=== PATIENT | female | born 1955 | race Caucasian/White ===

== ENCOUNTER 2025-01-09 13:29 | Day surgery (SDC) | payer OTHER ==
[2025-01-04 11:23] LABS: Absolute Lymphocytes (CBC) 1.5 K/uL (0.7-4.9); Hematocrit 41.0 % (36.0-45.0); Hemoglobin 14.0 g/dL (12.0-15.0); MCH 31.6 pg (27.0-35.0); MCHC 34.1 g/dL (32.0-36.0); MCV 92.8 fL (80-100); MPV 8.8 fL (7.6-11.3); Nucleated RBC Absolute Count 0.0 (0-0); Nucleated Red Blood Cells % 0.0 % (0-0); RBC Red Blood Cell Count 4.42 M/uL (3.86-4.86); White Blood Count 6.00 thou/uL (4.3-10.9)
[2025-01-04 11:31] LABS: Sqamous Epithelial <5 /HPF (None Seen); Urine Micro Reflex YN NO BILL MICROSCOPIC
[2025-01-04 11:37] LABS: Anion Gap 9.0 mEq/L (5.0-15.0); BUN Blood Urea Nitrogen 15.0 mg/dL (7-18); Glucose Level 86.0 mg/dL (74-106); Potassium 4.0 mEq/L (3.5-5.1)
[2025-01-04 13:12] LABS: Blood Morphology Comment NOT SEEN (NOT SEEN); White Blood Cell Scan OK (OK)
[2025-01-09] MEDS: SCOPOLAMINE HYDROBROMIDE PATCH TD ONE (13:44)
[2025-01-09] MEDS: Ringers Lactate 1,000 ML IV ONE ×3 (13:55→18:45)
[2025-01-09] MEDS: CEFAZOLIN SODIUM 2 GM/VIAL ONE (14:28)
[2025-01-09] MEDS: BUPIVACAINE 0.25% PF 30 ML VIAL ONE (14:29)
[2025-01-09] MEDS ORDERED: Mastisol Adhesive Liq ONE (14:32)
[2025-01-09] MEDS ORDERED: ONDANSETRON 4 MG/2 ML VIAL ONE (14:59)
[2025-01-09] MEDS ORDERED: ROCURONIUM 50 MG/5 ML VIAL IV ONE (14:59)
[2025-01-09] MEDS ORDERED: KETOROLAC 30 MG/ML INJ ONE ×2 (14:59→17:09)
[2025-01-09] MEDS ORDERED: LIDOCAINE 2% MPF 5 ML VIAL ONE (14:59)
[2025-01-09] MEDS ORDERED: FENTANYL CITR 100 MCG/2 ML ONE ×2 (15:00→16:14)
[2025-01-09] MEDS ORDERED: MIDAZOLAM HCL 2 MG/2 ML INJ ONE (15:00)
[2025-01-09] MEDS ORDERED: SUGAMMADEX SODIUM 200 MG/2 ML VIAL IV ONE (16:00)
[2025-01-09 18:36] VITALS: O2SAT 96
[2025-01-09] MEDS: HYDROCODONE/APAP 5/325 MG TAB ONE (19:10)
[2025-01-09 19:45] VITALS: BP 142/83; TEMP 97.3
--- NOTE | 2025-01-10 02:09 | OP ---
Date of Procedure: 01/09/2025 Surgeon: Natalia Raza MD Painter Decorator: Raquel Olvera. Preoperative Diagnosis: Large right ovarian cyst. 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 Procedures Performed: 1. Laparoscopic pelvic washings. 2. Laparoscopic lysis of sigmoid adhesions and cul-de-sac adhesions to the sigmoid. 3. Total laparoscopic hysterectomy, bilateral salpingo-oophorectomy. Ebl: 25. Urine Output: 150. Specimens: Uterus, bilateral tubes, and ovaries. Pelvic washings. Complications: No complications. Drains: No drains. Condition: The patient's condition is stable. Findings: There was a large right ovarian cyst. The tube and the round ligament was significantly a dhered together on both sides. Very difficult to dissect the tube completely out without taking a po rtion of the round ligament, destabilizing the uterus. The uterus was retroflexed of the endometrial and cervical canals. There was a perforation while placing a uterine manipulator through the posterior portion of the cervical canal. After pelvic washings and bilateral ligation of the IP ligament on an attempt to dissect the tubes, there was difficulty discerning the planes between the proximal portion of the tube and the round ligament. This was significantly adhered. The removal of the uterus seemed like the most complete procedure in order for me to remove the tubes in a satisfac tory fashion and so I proceeded with hysterectomy along with this. Vaginal cuff was closed in 2 laye rs with a 0 V-Loc suture and that the specimens including the uterus, tubes, and ovaries were all eliz byron in an EndoCatch bag through the vagina and retrieved vaginally without any spillage. The fluid o f the cyst was drained slightly with the help of the laparoscopic cholecystectomy drainage needle wit hin the bag and safely the bag was closed and removed, and handed off for permanent pathology. Indications: The patient is a 69-year-old presented with finding of a large right ovarian cyst, whic h was evaluated with a CA-125. Other ovary was completely unremarkable. Discussed different options of doing a procedure including a hysterectomy along with bilateral salpingo-oophorectomy or just a p jamshid salpingo-oophorectomy. With the preservation of the uterus as there is nothing abnormal in path ology about the uterus, endometrial sampling showed very minimal tissue with no atypical cells or any abnormal endometrial histology. So, the patient was consented for a bilateral salpingo-oophorectomy , which she was also counseled that there may be a situation in which I could decide that hysterectom y can be performed and she consented for that. This was done in the preoperative area and re-edgardo llanos. and her brother were present. Questions were answered to their satisfaction. Description Of Procedure: She was taken back to the OR. A 2 g of Ancef were given. SCDs were place d. She was placed in supine fashion on the operating table. General anesthesia was given. Placed i n a dorsal lithotomy position using Jose J stirrups. Arms were tucked by the side. Positioning was c hecked. SCDs were started. Time-out was done and procedure started. Speculum was placed to expose the cervix. Anterior lip was grasped with single-tooth tenaculum. The cervix was dilated to 12-Prydeinig, but there appeared to be a perforation of the uterus. We carefully the uterine manipulator that was without a cup was introduced as the original plan was to perform BS L. This was fixed in place and then the Mcclellan was placed to drain the bladder and attached to gravit y drainage bag and this area was draped. A 1 cm infraumbilical incision was made in a curvilinear fashion after injecting 0.25% Marcaine at th e skin. The fascia was incised and tagged with 0 Vicryl sutures. Peritoneum was entered bluntly wit h my finger and S retractor was placed. Wei was introduced. Site of entry was checked and was un remarkable. After adequate insufflation, both left lower quadrant and suprapubic 5 ports were placed . The procedure started with pelvic washings, placing the patient in Trendelenburg position. No oth er abnormalities noted in the upper abdomen as well. Then clearly, the cyst was inspected. No abnor mal tissue around it. There was significant sigmoid adhesions running from the natural attachment of the colon on the left side to the tube and ovary, and then the tube and ovary were adhered to the po sterior broad ligament in the left lateral sidewall. The adhesions of the colon went all the way ingris n below the uterosacral ligament and the cul-de-sac, across the cul-de-sac to the right uterosacral l igament. These adhesions were dense. However, there was no obliteration and so all these were taken down with sharp dissection using the scissors and the LigaSure as needed. Pelvic sidewall on the left was opened by opening the mesosalpinx and the peritoneum parallel to the IP and then dissection carried to the base of the round. Then in the medial leaf of the broad ligame nt, the ureter was identified. Then, the peritoneum incised between the ureter and IP, creating a go od long pedicle and this was cauterized and cut with the LigaSure and . The mesosalpinx was dissected to a certain level and then after that, the proximity of the round ligament to the tube wa s significant. I went over to the opposite side and similar dissection was performed opening the lateral broad ligam ent superior to the round ligament parallel to the IP. Then, the ureter was identified in the medial leaf of the broad ligament, also from the medial aspect through the peritoneum here. The peritoneum was incised sharply and sharp dissection performed parallel to the ureter, it inferiorly and medially. An IP ligament pedicle was very well exposed, cauterized, and cut with LigaSure. Then , mesosalpinx taken all the way and posterior lips of the broad ligament taken also. Again, same dil abelardo was faced, therefore called the and counseled that I would prefer to remove the uterus a long with the specimen, so that I could remove the entire tubes and ovaries intact without any remnan ts. Then, once this was completed, I proceeded with the hysterectomy. Both the round ligaments were taken down as pedicles. Then, the broad ligament was skeletonized. Carlos th peritoneum anteriorly and posteriorly layers were opened up. Bladder flap was created. Bladder w as dissected inferiorly to get uterine manipulator out. I was unable to place another manipulator re tracing the canal of the uterus. Therefore, I decided to proceed with a medium EEA Sizer in the vagi na to perform a colpotomy with this. Once the bladder was dissected inferiorly despite to 2 to 2.5 cm inferior to the cervical reflection, then on both sides posterior peritoneum was also incised and dissected inferiorly. Pedicles of the uterine vessels were created. They were cauterized and cut, and the cardinal ligaments were also cynthia en down, which were very sparse. Then, the colpotomy was performed with the curved tip bipolar grasp ers and monopolar scissors. The anterior cul-de-sac was first initially opened up with sharp dissect ion with scissors, then came onto the sides, and cardinal ligaments were cauterized and cut with the bipolar and then taken down with scissors and posteriorly the posterior portion of the vaginal cuff w as taken with the help of single tie of the monopolar scissors. Once the specimen was , the EndoCatch bag was placed through the vagina and the entire uterus, tubes, and ovaries were placed in side it and then this was retrieved through the vagina. The decompression of the cyst was done with the lap emiliana needle, aspirating the fluid to just a small degree and then rest of it was closed in a n EndoCatch bag and removed. Vaginal occluder was placed, which was small as the canal was narrow and vaginal cuff was closed afte r thorough irrigation and suction in a continuous running locked fashion with 0 V-Loc in 2 layers. Excellent peristalsis of the ureters on both sides. No evidence of any trauma to the bladder or the bowel. The pedicles were hemostatic and the hemostatic powder Jayjay was sprayed on the pedicles of the IP ligaments and the lateral dissection. All the trocars were removed under direct vision. The patient was flattened out. Gas was desufflate d. The fascia was closed with the tagged 0 Vicryl sutures tied to each other and simple 0 Vicryl sut ure at the suprapubic site. All incisions were closed with 4-0 Monocryl. Instrument, needle, and sp onge counts were correct at the end of case. The patient tolerated procedure well. She was recovere d from anesthesia and taken to PACU in stable condition. LARRY/TRE Voice ID: [id number] Report ID: [id number]
== END 2025-01-09 19:48 | disposition home or self-care (01) ==
LOC: OR 13:29
PROVIDERS: ATTEND Obstetrics & Gynecology
PROC: 0UT24ZZ Resection of Bilateral Ovaries, Percutaneous Endoscopic Approach (ICD-10-PCS; 2025-01-09)
PROC: 0UT74ZZ Resection of Bilateral Fallopian Tubes, Percutaneous Endoscopic Approach (ICD-10-PCS; 2025-01-09)
PROC: 0DNW4ZZ Release Peritoneum, Percutaneous Endoscopic Approach (ICD-10-PCS; 2025-01-09)
PROC: 0UT94ZZ Resection of Uterus, Percutaneous Endoscopic Approach (ICD-10-PCS; principal; 2025-01-09 14:30)
DX: N83.201 Unspecified ovarian cyst, right side (principal); R10.32 Left lower quadrant pain; K66.0 Peritoneal adhesions (postprocedural) (postinfection); N80.03 Adenomyosis of the uterus; D26.0 Other benign neoplasm of cervix uteri
CPT/HCPCS: 36415; 80048; 81001; 85025; 86850; 86900; 86901; 88108; 88305; 88307; 93005; J1100; J1885; J2003; J2250; J2405; J2704; J3010; J7120